=== PATIENT | male | born 1990 ===

== ENCOUNTER 2020-05-19 13:48 | Outpatient (CLI) | payer BC ==
--- NOTE | 2020-05-19 14:27 | ULT ---
EXAM: RENAL ULTRASOUND: 05/19/20 HISTORY: Decreased GFR. COMPARISON: None. FINDINGS: Right kidney: Small punctate echogenic foci are scattered and may represent nonobstructing calculi. N o hydronephrosis. No cortical masses. Right kidney measures 4.7 x 10.1 x 5.3 cm. Left kidney: Multiple echogenic foci. There appears to be a cluster of echogenic foci in the mid to l ower pole of the left kidney best demonstrated in the sagittal projection. No hydronephrosis. No obvi ous solid cortical masses. Left kidney measures 11.0 x 7.2 x 6.4 cm. Urinary bladder has a normal mucosa. Bladder volume is 835 mL. IMPRESSION: 1. Echogenic foci in the left and right cortices which are presumed to be bilateral calcificatio ns. Calcifications are noted on a previous CT from 05/19/13. 2. No evidence of hydronephrosis. 3. Slightly prominent urinary bladder. Encourage spontaneous voiding. Pre and post bladder volum es if clinically necessary. POS: [facility]
== END 2020-05-19 13:49 | disposition home or self-care (01) ==
LOC: BICULT 13:48
PROVIDERS: ATTEND Nurse Practitioner Family
DX: R94.4 Abnormal results of kidney function studies (principal); N28.89 Other specified disorders of kidney and ureter
CPT/HCPCS: 76770

== ENCOUNTER 2024-04-06 09:30 | Emergency (ER) | payer OTHER ==
[2024-04-06 11:40] LABS: Bacteria/HPF None Seen HPF (None Seen); Bilirubin Negative (Negative); Blood, Urine 2+ (Negative); CAUTI Indications for Culture Acute Hematuria; Clarity Clear (Clear); Glucose, Urine (Dipstick) Normal (Negative); Ketone, Urine Negative (Negative); Leukocyte Negative Leu/uL (Negative); Nitrite Negative (Negative); Protein, Urine (Dipstick) Negative (Neg-Trace); Specific Gravity, Urine 1.006 (1.002-1.036); Squamous Epithelial None Seen HPF (0-3); Urobilinogen Normal mg/dL (Less than 2); WBC/HPF 0-3 HPF (0-3); pH, Urine 7.5 (5.0-9.0)
[2024-04-06 11:49] LABS: Urine Culture Reflex No No
== END 2024-04-06 13:00 | disposition home or self-care (01) ==
LOC: ERS 09:30
DX: N20.2 Calculus of kidney with calculus of ureter (principal); R31.9 Hematuria, unspecified
CPT/HCPCS: 74176; 81001